=== PATIENT | male | born 1955 | race Two or more races ===

== ENCOUNTER 2022-06-01 09:47 | Emergency (ER) | payer MEDICARE, MEDICAID ==
[~2022-06-01] VITALS: Ht 175.3 cm; Wt 85.0 kg
[2022-06-01 09:53] VITALS: BP 165/79
== END 2022-06-01 13:07 | disposition home or self-care (01) ==
LOC: EDBD 09:47 → ER 09:47
DX: F10.10 Alcohol abuse, uncomplicated (principal); S00.81XA Abrasion of other part of head, initial encounter; R51.9 Headache, unspecified; W18.30XA Fall on same level, unspecified, initial encounter; Y90.9 Presence of alcohol in blood, level not specified; Y93.89 Activity, other specified; Y92.89 Other specified places as the place of occurrence of the external cause; Y99.8 Other external cause status
CPT/HCPCS: 99284